=== PATIENT | female | born 1960 | race Two or more races ===

== ENCOUNTER 2018-04-27 08:49 | Outpatient (CLI) | payer OTHER | END 2018-04-27 08:51 | disposition home or self-care (01) | LOC: MAMO-SONO 08:49 | DX: Z12.31 Encounter for screening mammogram for malignant neoplasm of breast (principal); N64.59 Other signs and symptoms in breast; N64.89 Other specified disorders of breast ==

== ENCOUNTER 2018-04-28 07:29 | Outpatient (CLI) | payer OTHER | END 2018-04-28 07:33 | disposition home or self-care (01) | LOC: LAB 07:29 | DX: Z00.00 Encounter for general adult medical examination without abnormal findings (principal); I10 Essential (primary) hypertension; E03.8 Other specified hypothyroidism; E78.2 Mixed hyperlipidemia; N39.0 Urinary tract infection, site not specified; Z11.4 Encounter for screening for human immunodeficiency virus [HIV]; Z12.11 Encounter for screening for malignant neoplasm of colon; E55.9 Vitamin D deficiency, unspecified; Z21 Asymptomatic human immunodeficiency virus [HIV] infection status; R79.89 Other specified abnormal findings of blood chemistry ==

== ENCOUNTER 2018-05-10 12:12 | Outpatient (CLI) | payer OTHER | END 2018-05-10 12:29 | disposition home or self-care (01) | LOC: NUCLEAR 12:12 | DX: Z13.820 Encounter for screening for osteoporosis (principal); N95.1 Menopausal and female climacteric states; M81.0 Age-related osteoporosis without current pathological fracture ==

== ENCOUNTER → 2019-03-13 18:08 | Outpatient (CLI) | payer OTHER | END | disposition home or self-care (01) | LOC: RAD 18:08 | DX: M25.562 Pain in left knee (principal); M25.561 Pain in right knee ==

== ENCOUNTER → 2023-09-21 | Outpatient (CLI) | payer OTHER ==
[~2023-09-21] MED LIST: LIPITOR20 MG; TYLENOL; TYLENOL325 MG; ZESTRIL40 M1
[2023-09-21 08:32] LABS: CHOL HDL RATIO 2.9 (0-5.0); TSH 1.37 uIU/mL (0.358-3.74)
== END | disposition home or self-care (01) ==
LOC: LAB 06:33
PROVIDERS: ATTEND Internal Medicine
DX: D68.9 Coagulation defect, unspecified (principal); D64.9 Anemia, unspecified; R10.9 Unspecified abdominal pain; E78.5 Hyperlipidemia, unspecified; R73.09 Other abnormal glucose; I50.22 Chronic systolic (congestive) heart failure; Z79.01 Long term (current) use of anticoagulants; I10 Essential (primary) hypertension; Z20.822 Contact with and (suspected) exposure to COVID-19; Z01.818 Encounter for other preprocedural examination

== ENCOUNTER 2023-09-25 06:00 | Inpatient (IN) | payer OTHER ==
[2023-09-21 07:49] LABS: HEMATOCRIT 39.3 % (36.0-45.00); HEMOGLOBIN 12.9 g/dL (12.0-15.00); MEAN CELL VOLUME 85.3 fL (80.00-100.00); MEAN CORPUSCULAR HEMOGLOBIN 28.1 pg (27.00-32.0); MEAN CORPUSCULAR HGB CONC 32.9 g/dl (32.0-36.0); PLATELET COUNT 210 K/uL (150-450); RED BLOOD COUNT 4.61 M/uL (4.00-6.00); RED CELL DISTRIBUTION WIDTH 14.2 % (11.5-14.5)
[2023-09-21 07:51] LABS: URINE APPEARANCE Clear; URINE BILIRRUBIN Negative (NEGATIVE); URINE BLOOD Negative; URINE COLOR Yellow; URINE GLUCOSE Negative (NEGATIVE); URINE LEUKOCYTE Negative; URINE NITRATE Negative; URINE PROTEIN Negative (NEGATIVE); URINE UROBILINOGEN 0.2 E.U./dl
[2023-09-21 07:55] LABS: URINE BACTERIA 11.3 uL (0.0-1933); URINE WBC 2.9 uL (0.0-23.2)
[2023-09-21 08:01] LABS: URINE EPITHELIAL CELLS 0.9 uL (0.0-38.8); URINE RBC 0.4 uL (0.0-20.8)
[2023-09-21 08:20] LABS: INR < 0.93; PARTIAL THROMBOPLASTIN TIME 26.9 SECONDS (22.0-34.0); PROTHROMBIN TIME 9.8 SECONDS (9.0-11.5)
[2023-09-21 08:23] LABS: BILIRUBIN TOTAL 0.46 mg/dL (0.3-1.2); CALCIUM 9.6 mg/dL (8.5-10.1); CREATININE SERUM 0.81 mg/dL (0.55-1.02); GFR 71.41; GLOBULINA 3.5 G/DL (2.4-3.5); POTASSIUM 4.86 mEq/L (3.5-5.1); TOTAL PROTEIN 7.5 gm/dL (6.4-8.2)
[~2023-09-25 06:00] MED LIST changes: -TYLENOL325 MG
[2023-09-25] MEDS ORDERED: VANCOMYCIN HCL 1,000 MG VIAL ONE ×2 (07:41→10:05)
[2023-09-25] MEDS ORDERED: TRANEXAMIC ACID 100MG/1ML (1000MG) AMPUL IV ONE ×3 (07:41→11:45)
[2023-09-25] MEDS ORDERED: TYLENOL325 MG (09:39)
[2023-09-25] MEDS ORDERED: KETOROLAC TROMETHAMINE 30 MG VIAL ONE (10:05)
[2023-09-25] MEDS ORDERED: LIDOCAINE HCL 1%/EPINEPHRINE 20ML VIAL IJ ONE ×2 (10:06→11:45)
[2023-09-25] MEDS ORDERED: METHYLPREDNISOLONE ACETATE 80 MG/ML VIAL ONE ×2 (10:40→10:47)
[2023-09-25] MEDS ORDERED: VANCOMYCIN HCL 1,000 MG VIAL IV ONE (11:45)
[2023-09-25] MEDS ORDERED: KETOROLAC TROMETHAMINE 30 MG VIAL IJ ONE (11:45)
[2023-09-25] MEDS ORDERED: METHYLPREDNISOLONE ACETATE 80 MG/ML VIAL IU ONE (11:45)
[2023-09-25] MEDS ORDERED: ONDANSETRON HCL 2 MG/ML VIAL IV PRN (14:30)
[2023-09-25] MEDS ORDERED: MORPHINE SULFATE 4 MG/ML CARTRIDGE IV PRN (14:30)
[2023-09-25] MEDS ORDERED: MORPHINE SULFATE 4 MG/ML CARTRIDGE IV ONE (14:30)
[2023-09-25] MEDS ORDERED: SODIUM CHLORIDE 0.45 % 1,000 ML IV SCH (14:30)
[2023-09-25 15:54] LABS: HEMATOCRIT 38.5 % (36.0-45.00); HEMOGLOBIN 12.7 g/dL (12.0-15.00); RED BLOOD COUNT 4.44 M/uL (4.00-6.00)
[2023-09-25] MEDS ORDERED: GABAPENTIN 300 MG CAPSULE PO SCH (19:35)
[2023-09-25] MEDS ORDERED: ACETAMINOPHEN 500 MG GEL..CAP PO PRN (19:45)
[2023-09-25] MEDS ORDERED: VANCOMYCIN HCL 1,000 MG VIAL IV SCH (21:00)
[2023-09-26 01:15] LABS: HEMATOCRIT 32.5 % (36.0-45.00); MEAN CELL VOLUME 86.7 fL (80.00-100.00); MEAN CORPUSCULAR HGB CONC 32.9 g/dl (32.0-36.0); PLATELET COUNT 170 K/uL (150-450); RED BLOOD COUNT 3.75 M/uL (4.00-6.00)
[2023-09-26 01:16] LABS: HEMOGLOBIN 10.7 g/dL (12.0-15.00); MEAN CORPUSCULAR HEMOGLOBIN 28.5 pg (27.00-32.0)
[2023-09-26] MEDS ORDERED: ENALAPRILAT DIHYDRATE 1.25 MG/ML VIAL IV PRN (08:15)
[2023-09-26] MEDS ORDERED: SENNA/DOCUSATE SODIUM 1 TAB TABLET PO SCH (09:00)
[2023-09-26] MEDS ORDERED: ATORVASTATIN CALCIUM 20 MG TABLET PO SCH (09:00)
[2023-09-26] MEDS ORDERED: CELECOXIB 200 MG CAPSULE PO SCH (09:00)
[2023-09-26] MEDS ORDERED: RIVAROXABAN 10 MG TAB PO SCH (09:00)
[2023-09-26] MEDS ORDERED: LISINOPRIL 40 MG TABLET PO SCH (09:00)
[2023-09-26] MEDS ORDERED: IRON FUM,PS/FOLIC/BCOMP,C NO.9 1 CAP CAPSULE PO SCH (09:00)
[2023-09-26] MEDS ORDERED: BACITRACIN 28.35 GM OINT.TUBE TOP SCH (09:00)
[2023-09-27 02:26] LABS: HEMATOCRIT 30.5 % (36.0-45.00); HEMOGLOBIN 10.2 g/dL (12.0-15.00); MEAN CELL VOLUME 86.1 fL (80.00-100.00); MEAN CORPUSCULAR HEMOGLOBIN 28.8 pg (27.00-32.0); MEAN CORPUSCULAR HGB CONC 33.4 g/dl (32.0-36.0); PLATELET COUNT 188 K/uL (150-450); RED BLOOD COUNT 3.54 M/uL (4.00-6.00); RED CELL DISTRIBUTION WIDTH 14.3 % (11.5-14.5)
[2023-09-27] MEDS ORDERED: XARELTO10 MG PO (06:28)
[2023-09-27] MEDS ORDERED: DOLOGESIC 500-1 EACH PO (06:28)
[2023-09-27] MEDS ORDERED: BACTRIM DS TAB1 EACH PO (06:28)
[2023-09-27] MEDS ORDERED: INTEGRA PLUS C1 EACH PO (06:28)
[2023-09-27] MEDS ORDERED: SULFAMETHOXAZOLE/TRIMETHOPRIM DS 1 TAB PO SCH (06:30)
== END 2023-09-27 14:44 | DRG 470 ==
LOC: O/R 06:00 → SURG 06:00 → SURH 06:23 → SURG 14:47
PROVIDERS: ADMIT Orthopaedic Surgery Sports Medicine; ATTEND Orthopaedic Surgery Sports Medicine
PROC: 0SRB0JZ Replacement of Left Hip Joint with Synthetic Substitute, Open Approach (ICD-10-PCS; principal; 2023-09-25 07:00)
DX: M16.12 Unilateral primary osteoarthritis, left hip (principal)

== ENCOUNTER → 2024-05-15 11:16 | Outpatient (CLI) | payer OTHER ==
[~2024-05-15 11:16] MED LIST changes: +BACTRIM DS TAB1 EACH PO; +DOLOGESIC 500-1 EACH PO; +INTEGRA PLUS C1 EACH PO; +TYLENOL325 MG; +XARELTO10 MG PO
[2024-05-15 12:09] LABS: HEMATOCRIT 36.6 % (36.0-45.00); HEMOGLOBIN 12.5 g/dL (12.0-15.00); INR 0.99; MEAN CELL VOLUME 87.8 fL (80.00-100.00); MEAN CORPUSCULAR HEMOGLOBIN 29.9 pg (27.00-32.0); PARTIAL THROMBOPLASTIN TIME 27.1 SECONDS (22.0-34.0); PLATELET COUNT 236 K/uL (150-450); PROTHROMBIN TIME 10.8 SECONDS (9.0-11.5); RED BLOOD COUNT 4.17 M/uL (4.00-6.00); RED CELL DISTRIBUTION WIDTH 15.3 % (11.5-14.5)
[2024-05-15 12:59] LABS: BILIRUBIN TOTAL 0.78 mg/dL (0.3-1.2); CALCIUM 9.4 mg/dL (8.5-10.1); CHOL HDL RATIO 2.5 (0-5.0); CREATININE SERUM 0.74 mg/dL (0.55-1.02); GFR 79.01; GLOBULINA 3.2 G/DL (2.4-3.5); POTASSIUM 4.61 mEq/L (3.5-5.1); TOTAL PROTEIN 7.2 gm/dL (6.4-8.2)
[2024-05-15 13:01] LABS: TSH 0.791 uIU/mL (0.358-3.74)
== END | disposition home or self-care (01) ==
LOC: LAB 11:16
PROVIDERS: ATTEND Internal Medicine
DX: K29.70 Gastritis, unspecified, without bleeding (principal); C73 Malignant neoplasm of thyroid gland; E78.9 Disorder of lipoprotein metabolism, unspecified; D64.9 Anemia, unspecified; R10.9 Unspecified abdominal pain; E03.9 Hypothyroidism, unspecified; E78.5 Hyperlipidemia, unspecified; E11.9 Type 2 diabetes mellitus without complications; I50.22 Chronic systolic (congestive) heart failure; Z79.01 Long term (current) use of anticoagulants; I10 Essential (primary) hypertension

== ENCOUNTER 2025-03-27 06:35 | Outpatient (CLI) | payer OTHER ==
[2025-03-27 06:25] LABS: BASO % 1.2 % (0.1-1.2); EOS # 0.24 (0.04-0.54); EOS % 5.6 % (0.7-7.0); LYMPH # 0.77 (1.18-3.74); LYMPH % 17.9 % (19.3-53.1); MEAN PLATELET VOLUME 10.50 fl (9.4-12.4); MONO # 0.39 (0.24-0.82); MONO % 9.1 % (4.7-12.5); NEUT # 2.84 (1.56-6.13); NEUT % 66.0 % (34.0-71.1); RED CELL DISTRIBUTION WIDTH 14.1 % (11.6-14.4)
[2025-03-27 07:10] LABS: INR 0.94
[2025-03-27 07:29] LABS: ALT/SGPT 34.0 U/L (12-78); AST/SGOT 21.0 U/L (15-37); BILIRUBIN TOTAL 0.54 mg/dL (0.3-1.2); BUN CREA RATIO 22.0 (7.0-25.0); CHOL HDL RATIO 2.0 (0-5.0); CREATININE SERUM 0.78 mg/dL (0.55-1.02); GFR 74.12; GLOBULINA 3.0 G/DL (2.4-3.5); GLUCOSE FASTING 102.0 mg/dL (65-100); HDL 79.0 mg/dl (40-60); LDL 63.0 mg/dl (0-130); OSMOLALITY SERUM 287.0 MOSM/KG (275-295); TSH 0.994 uIU/mL (0.358-3.74); VLDL 13.0 (0-39)
== END 2025-03-27 06:36 | disposition home or self-care (01) ==
LOC: LAB 06:35
PROVIDERS: ATTEND Internal Medicine
DX: D64.9 Anemia, unspecified (principal); R10.9 Unspecified abdominal pain; E03.9 Hypothyroidism, unspecified; E78.5 Hyperlipidemia, unspecified; E11.9 Type 2 diabetes mellitus without complications; I50.22 Chronic systolic (congestive) heart failure; Z79.01 Long term (current) use of anticoagulants; I10 Essential (primary) hypertension